=== PATIENT | male | born 1985 | race Caucasian/White ===

== ENCOUNTER 2016-12-21 09:42 | Day surgery (SDC) | payer OTHER ==
[2016-12-21] MEDS ORDERED: LACTATED RINGERS 1,000 ML IV ONE (09:50)
[2016-12-21] MEDS ORDERED: ceFAZolin 2 GM/50 ML 50 ML IV ONE (10:06)
--- NOTE | 2016-12-21 10:13 | HISTORY & PHYSICAL EXAMINATION ---
HPI - History of Present Illness HPI Comment/Other: Patient is here for excision of recurrent pilonidal cyst. Past Medical History: Reviewed history and no changes required: Frequent indigestion Heartburn Aicd Reflux Past Surgical History: Reviewed history and no changes required: Pylonidal cyst, removal 2008- Family History Summary: Reviewed history and no changes required: 09/16/2016 Mother () - Has Family History of Other Medical Problems - asthma - Entered On: 09/16/2016 Social History: Reviewed history and no changes required: Physical Exam General: well developed, well nourished, in no acute distress Lungs: clear bilaterally to A & P Heart: regular rate and rhythm, S1, S2 without murmurs, rubs, gallops, or clicks Abdomen: bowel sounds positive; abdomen soft and non-tender without masses, organomegaly, or hernias noted Rectal: Small pilonidal cyst located in the gluteal fold. Inferiorly is a 2 cm incisional scar. There is no fluctuance or erythema. Pulses: pulses normal in all 4 extremities Extremities: no clubbing, cyanosis, edema, or deformity noted with normal full range of motion of all joints Impression & Recommendations: Problem # 1: Recurrent pilonidal cyst plan to proceed with excision of pilonidal cyst Meds/Allgy - Home Medications Home Medications: Ambulatory Orders Medication Instructions Recorded Confirmed raNITIdine [Zantac] 150 mg PO PRN PRN 12/21/16 12/21/16 Exam - Vital Signs Vital Signs: Vital Signs x48h Temp Pulse Resp BP Pulse Ox 12/21/16 09:59 36.2 C L 62 16 124/76 98
[2016-12-21] MEDS ORDERED: BUPIVACAINE 0.5% PF 30 ML VIAL INFIL ONE ×2 (10:55)
[2016-12-21] MEDS ORDERED: LIDOCAINE MPF 1%-EPI 1:200000 30 ML VIAL SUBQ ONE ×2 (10:56)
[2016-12-21] MEDS ORDERED: KETOROLAC 30 MG/ML VIAL IVP ONE (11:08)
[2016-12-21] MEDS ORDERED: METOCLOPRAMIDE 10 MG/2 ML VIAL IVP ONE (11:08)
[2016-12-21] MEDS ORDERED: PROPOFOL 200 MG/20 ML VIAL IVP ONE (11:08)
[2016-12-21] MEDS ORDERED: fentaNYL 100 MCG/2 ML VIAL IVP ONE (11:08)
[2016-12-21] MEDS ORDERED: LIDOCAINE-MPF 2% 5 ML VIAL IM ONE (11:08)
[2016-12-21] MEDS ORDERED: MIDAZOLAM 2 MG/2 ML VIAL IVP ONE (11:08)
[2016-12-21] MEDS ORDERED: ONDANSETRON 4 MG/2 ML VIAL IVP ONE (11:08)
[2016-12-21] MEDS ORDERED: oxyCOD/ACETAMIN 5 MG/325 MG TABLET PO ONE (11:53)
[2016-12-21 12:07] VITALS: BP 133/76
--- NOTE | 2016-12-22 17:25 | OPERATIVE REPORT ---
DATE OF SURGERY: 12/21/2016 00:00:00 PREOPERATIVE DIAGNOSIS: Recurrent pilonidal cysts. POSTOPERATIVE DIAGNOSIS: Recurrent pilonidal cysts. NAME OF PROCEDURE: Excision of pilonidal cyst SURGEON: Ashley Huang MD. ANESTHESIOLOGIST: Dr. Feliciano. INDICATION FOR PROCEDURE: This is a 31-year-old gentleman who presents with recurring pilonidal abscesses status post excision of pilonidal cyst in 2008, now with recurring pilonidal cysts in sinus. FINDINGS: After obtaining informed consent from the patient, he was brought into the operating room, positioned on the operating table in the prone position , taking note of pressure points. He was administered sedation by Anesthesia. He was administered 2 g of Ancef. He was then prepped and draped in the usual sterile fashion, and a timeout was taken according to protocol. Two sinus pits were located at the gluteal fold. These pits were excised using an 11-blade, circumferentially excising the cysts just around the opening. A contralateral incision to the left of the gluteal food was then created approximately 1.5 cm in length. This was deepened down with electrocautery through the subcutaneous tissue, down towards the presacral fascia using a curette. The pilonidal cysts at their base were excised using the curette through the lateral incision. Probes were inserted through both openings to ensure the entire cystic cavity was removed with a curette. Once this was performed, the cavities were copiously irrigated and hemostasis noted to be achieved. The incision was then closed with 2-0 Vicryl and 4-0 Monocryl. The cyst sites were then packed with quarter-inch iodoform packing. The Dermabond was applied to the lateral incision. An ABD pad was then applied and disposable underwear were placed. Patient was then taken to the recovery room in stable condition. ESTIMATED BLOOD LOSS: Minimal. COMPLICATIONS: None. SPECIMENS: None. JOB #: [id number] EXT JOB #:[id number] MTDD
== END 2016-12-21 09:43 | disposition home or self-care (01) ==
LOC: SDS 09:42
PROVIDERS: ATTEND Surgery
PROC: 0JB90ZZ Excision of Buttock Subcutaneous Tissue and Fascia, Open Approach (ICD-10-PCS; principal; 2016-12-21 10:45)
DX: L05.91 Pilonidal cyst without abscess (principal); F17.210 Nicotine dependence, cigarettes, uncomplicated
CPT/HCPCS: 11771; A9270; J0690; J7120